=== PATIENT | female | born 1985 | race Hispanic/Latino ===

== ENCOUNTER 2017-08-30 10:59 | Emergency (ER) | payer OTHER ==
[~2017-08-30 10:59] MED LIST: IBUP-2353 PO
== END 2017-08-30 11:25 | disposition home or self-care (01) ==
LOC: EDH 10:59
DX: J06.9 Acute upper respiratory infection, unspecified (principal)

== ENCOUNTER 2017-09-29 08:49 | Emergency (ER) | payer OTHER ==
[2017-09-29] MEDS ORDERED: SODIUM CHLORIDE 0.9% 1000ML 1,000 ML IV ONE (09:13)
[2017-09-29 09:25] LABS: APPEARANCE,URINE Clear (CLEAR); BILIRUBIN,URINE Negative (NEGATIVE); COLOR,URINE Yellow (YELLOW); GLUCOSE, URINE (UA) Negative (NEGATIVE); KETONES,URINE Negative (NEGATIVE); LEUKOCYTE ESTERASE ,URINE Negative (NEGATIVE); NITRATE,URINE Negative (NEGATIVE); OCCULT BLOOD,URINE Moderate (NEGATIVE); PROTEIN,URINE Negative (NEGATIVE); UROBILINOGEN,URINE 0.2 mg/dL (0.2-1.0)
[2017-09-29 09:33] LABS: AMPHET/METH SCREEN,URINE NEGATIVE (NEGATIVE); BARBITURATE SCREEN, URINE NEGATIVE (NEGATIVE); BENZODIAZEPINES SCREEN,URINE NEGATIVE (NEGATIVE); CANNABINOID SCREEN,URINE NEGATIVE (NEGATIVE); COCAINE SCREEN,URINE NEGATIVE (NEGATIVE); OPIATE SCREEN,URINE NEGATIVE (NEGATIVE); PHENCYCLIDINE SCREEN,URINE NEGATIVE (NEGATIVE)
[2017-09-29 09:38] LABS: RAPID GROUP A STREP NEGATIVE (NEGATIVE)
[2017-09-29 09:49] LABS: HCG,QUAL RESULT NEGATIVE (NEGATIVE)
[2017-09-29] MEDS ORDERED: KETOROLAC TROMETHAMINE 15MG/ML ONE (09:50)
[2017-09-29] MEDS ORDERED: METOCLOPRAMIDE 10 MG TABLET ONE (09:53)
[2017-09-29 09:55] LABS: BACTERIA,URINE None Seen /HPF (None Seen); SQUAMOUS EPITHELIAL CELL,UR 0-2 /LPF (0-2); WBC,URINE None Seen /HPF (0-1)
== END 2017-09-29 12:36 | disposition left against medical advice (07) ==
LOC: EDH 08:49
DX: R51 Headache (principal); R11.0 Nausea; R53.81 Other malaise; H53.149 Visual discomfort, unspecified; Z98.51 Tubal ligation status; Z90.49 Acquired absence of other specified parts of digestive tract; Z79.899 Other long term (current) drug therapy
CPT/HCPCS: 70450; 80305; 81001; 81025; 87804 ×2; 87880; 96361; 96374; 99285; J1885; J7030

== ENCOUNTER 2021-03-19 06:39 | Emergency (ER) | payer OTHER ==
[~2021-03-19] VITALS: Ht 175.3 cm; Wt 112.0 kg
[~2021-03-19 06:39] MED LIST changes: -IBUP-2353 PO; +IBUP-2784 PO
[2021-03-19 07:31] LABS: BILIRUBIN,URINE SMALL (NEGATIVE); COLOR,URINE YELLOW (YELLOW); GLUCOSE, URINE (UA) NEGATIVE (NEGATIVE); KETONES,URINE NEGATIVE (NEGATIVE); LEUKOCYTE ESTERASE ,URINE SMALL (NEGATIVE); NITRATE,URINE NEGATIVE (NEGATIVE); OCCULT BLOOD,URINE LARGE (NEGATIVE); PROTEIN,URINE TRACE mg/dL (NEGATIVE)
[2021-03-19 07:38] LABS: APPEARANCE,URINE SLIGHTLY CLOUDY (CLEAR)
[2021-03-19 07:46] LABS: BACTERIA,URINE Moderate /HPF (None Seen); MUCUS,URINE Moderate LPF (None Seen); SQUAMOUS EPITHELIAL CELL,UR Rare /HPF (0-2)
[2021-03-19 07:57] LABS: BASOPHILS % (AUTO) 0.2 % (0.0-5.0); EOSINOPHILS % (AUTO) 0.9 % (0.0-8.0); HEMATOCRIT 40.8 % (36-48); LYMPHOCYTES % (AUTO) 11.3 % (21.0-51.0); MEAN CORPUSCULAR HEMOGLOBIN 28.7 pg (27.0-33.0); MEAN CORPUSCULAR HGB CONC 33.3 g/dL (32.0-36.0); MEAN CORPUSCULAR VOLUME 86.1 fL (79-99); MONOCYTES % (AUTO) 6.1 % (3.0-13.0); NEUTROPHILS % (AUTO) 81.2 % (40.0-77.0); PLATELET COUNT (AUTO) 237 K/uL (130-400); RED BLOOD CELL COUNT(AUTO) 4.74 MIL/uL (4.00-5.50); WHITE BLOOD COUNT (AUTO) 6.6 K/uL (4.8-10.8)
[2021-03-19] MEDS ORDERED: ONDANSETRON 4MG INJ IVP ONE (08:00)
[2021-03-19] MEDS ORDERED: FAMOTIDINE 20MG VIAL IV ONE (08:00)
[2021-03-19] MEDS ORDERED: HYOSCYAMINE SULFATE 0.125 MG TAB.SUBL SL SCH (08:00)
[2021-03-19 08:17] LABS: ALANINE AMINOTRANSFERASE 44 U/L (12-78); ALBUMIN 3.9 g/dL (3.5-5.0); ASPARTATE AMINOTRANSFERASE 28 U/L (10-37); BILIRUBIN,TOTAL 0.8 mg/dL (0.2-1.0); CARBON DIOXIDE 27 mmol/L (21-32); CHLORIDE 106 mmol/L (101-111); CREATININE 0.9 mg/dL (0.5-1.5); GLOMERULAR FILTR. RATE CALC 76 mL/min (>60); GLUCOSE,RANDOM 105 mg/dL (70-105); LIPASE < 50 U/L (114-286); POTASSIUM 3.7 mmol/L (3.5-5.1); SODIUM SERUM 142 mmol/L (136-145); TOTAL PROTEIN, SERUM 7.7 g/dL (6.0-8.3); UREA NITROGEN, BLOOD 8 mg/dL (7-18)
[2021-03-19 08:36] VITALS: BP 112/77
[2021-03-19] MEDS ORDERED: HYOS0.124 SL (09:50)
[2021-03-19] MEDS ORDERED: ONDA4TAB10 PO (09:50)
[2021-03-19 10:22] VITALS: BP 125/69
== END 2021-03-19 10:33 | disposition home or self-care (01) ==
LOC: EDH 06:42
DX: A05.9 Bacterial foodborne intoxication, unspecified (principal); E86.0 Dehydration; R82.71 Bacteriuria; R11.2 Nausea with vomiting, unspecified; Z79.899 Other long term (current) drug therapy
CPT/HCPCS: 36415; 80053; 81001; 81025; 83690; 85025; 87077; 87088; 87186; 96374; 96375; 99284; J2405; J3490